=== PATIENT | female | born 1980 | race Caucasian/White ===

== ENCOUNTER 2017-06-30 17:37 | Emergency (ER) | payer OTHER, SELFPAY ==
[2017-06-30 18:01] LABS: #Eosinphils 0.4 thou/uL (0.0-0.7); #Lymphocytes 2.1 thou/uL (1.20-3.40); #Monocytes 0.8 thou/uL (0.11-0.59); #Neutrophils 5.8 thou/uL (1.40-6.50); %Basophils 0.4 % (0.0-1.0); %Eosinophils 4.8 % (0.0-10.0); %Lymphocytes 22.6 % (21.0-51.0); %Monocytes 8.5 % (0.0-10.0); Hematocrit 38.1 % (36.0-47.0); Red Blood Cell (RBC) Count 4.06 mill/uL (4.20-5.40); White Blood Cell (WBC) Count 9.2 thou/uL (4.8-10.8)
--- NOTE | 2017-06-30 18:22 | RAD ---
UPRIGHT PORTABLE CHEST ONE VIEW: History: 37-year-old female with chest pain and weakness which began last night. FINDINGS: Monitor leads overlie the chest. Heart size is normal. The left lung is clear. There are some increa sed markings in the right infrahilar region, evidence for minimal right lower lobe pneumonia. IMPRESSION: Parenchymal changes in the right infrahilar region and right lower lobe, evidence for pneumonia. POS: [facility]
[2017-06-30 18:25] LABS: ALT (SGPT) 8 U/L (8-55); AST (SGOT) 12 U/L (5-34); Alkaline Phosphatase 75 U/L (40-150); Anion Gap 11 mmol/L (10-20); BUN (Urea Nitrogen) 10 mg/dL (7.0-18.7); Bilirubin, Total 0.2 mg/dL (0.2-1.2); CK (CPK) 32 U/L (29-168); Calc. Creatinine Clearance 0 mL/min (70-130); Calcium 8.1 mg/dL (7.8-10.44); Carbon Dioxide 30 mmol/L (22-29); Chloride 104 mmol/L (98-107); Estimated GFR-MDRD Greater than 90; Protein, Total 6.2 g/dL (6.0-8.3); Troponin I Less than 0.010 ng/mL (< 0.028)
[2017-06-30] MEDS ORDERED: diphenhydrAMINE 50 MG/ML VIAL ONE (18:53)
[2017-06-30] MEDS ORDERED: Metoclopramide HCl 10 MG/2 ML VIAL ONE (18:53)
[2017-06-30] MEDS ORDERED: Ketorolac Tromethamine 30 MG/ML VIAL ONE (18:53)
== END 2017-06-30 20:10 | disposition home or self-care (01) ==
LOC: ERS 17:37
DX: J18.9 Pneumonia, unspecified organism (principal); I10 Essential (primary) hypertension; G43.909 Migraine, unspecified, not intractable, without status migrainosus; J45.909 Unspecified asthma, uncomplicated; F41.9 Anxiety disorder, unspecified; F17.210 Nicotine dependence, cigarettes, uncomplicated; Z79.899 Other long term (current) drug therapy
CPT/HCPCS: 36415; 71010; 80053; 82550; 82553; 84484; 85025; 93005; 96365; 96375; J1200; J1885; J2765

== ENCOUNTER 2017-08-28 17:53 | Emergency (ER) | payer SELFPAY ==
[2017-08-28 18:32] LABS: #Eosinphils 0.6 thou/uL (0.0-0.7); #Lymphocytes 2.7 thou/uL (1.20-3.40); #Monocytes 0.7 thou/uL (0.11-0.59); #Neutrophils 5.6 thou/uL (1.40-6.50); %Basophils 0.5 % (0.0-1.0); %Eosinophils 6.3 % (0.0-10.0); %Lymphocytes 27.8 % (21.0-51.0); %Monocytes 7.5 % (0.0-10.0); Hematocrit 44.9 % (36.0-47.0); Mean Platelet Volume 6.7 fL (7.4-10.4); Red Blood Cell (RBC) Count 4.83 mill/uL (4.20-5.40); White Blood Cell (WBC) Count 9.7 thou/uL (4.8-10.8)
[2017-08-28 18:40] LABS: Bilirubin Negative (Negative); Blood, Urine Small (Negative); Glucose, Urine (Dipstick) Negative (Negative); Ketone, Urine Negative (Negative); Nitrite Positive (Negative); Protein, Urine (Dipstick) Negative (Neg-Trace); Urobilinogen 0.2 mg/dL (0.2-1.0)
[2017-08-28 18:43] LABS: Bacteria/HPF 2+ HPF (None Seen); Hyaline Casts/LPF 0-3 HYALINE CAST LPF (0-3 Hyaline); Squamous Epithelial 0-3 HPF (0-3); WBC/HPF 0-3 HPF (0-3)
[2017-08-28 18:53] LABS: Amphetamine Detected (NotDetected); Methadone Not Detected (NotDetected); Methamphetamine Detected (NotDetected)
[2017-08-28 18:58] LABS: ALT (SGPT) 12 U/L (8-55); AST (SGOT) 19 U/L (5-34); Alkaline Phosphatase 77 U/L (40-150); Anion Gap 13 mmol/L (10-20); BUN (Urea Nitrogen) 10 mg/dL (7.0-18.7); Bilirubin, Total 0.4 mg/dL (0.2-1.2); Calc. Creatinine Clearance 0 mL/min (70-130); Carbon Dioxide 30 mmol/L (22-29); Chloride 99 mmol/L (98-107); Estimated GFR-MDRD Greater than 90; Globulin 3.5 g/dL (2.4-3.5); Protein, Total 7.9 g/dL (6.0-8.3)
--- NOTE | 2017-08-28 19:21 | RAD ---
CHEST TWO VIEWS: 08/28/17 HISTORY: Chest pain. Heart size and mediastinum are within normal limits. The lungs are clear of infiltrates. No bony find ings. IMPRESSION: No active intrathoracic disease. POS: [facility]
[2017-08-28 19:30] LABS: Troponin I 0.012 ng/mL (< 0.028)
[2017-08-28] MEDS ORDERED: Methocarbamol 1 GM in Sodium Chloride 0.9% 100 ML IVPB ONE (19:30)
[2017-08-28] MEDS ORDERED: Dicyclomine 20 MG TAB ONE (19:31)
--- NOTE | 2017-08-28 21:45 | CT ---
CT OF ABDOMEN AND PELVIS PERFORMED WITH CONTRAST ENHANCEMENT: 08/28/17 HISTORY: Diffuse abdominal pain. COMPARISON: 01/21/17 study. The lung bases are clear. The liver, spleen, pancreas and gallbladder regions appear unremarkable. Stomach is distended. Right and left adrenal glands and right and left kidneys are normal in appearance. There is no significant periaortic or mesenteric adenopathy. CT OF PELVIS PERFORMED WITH CONTRAST ENHANCEMENT: The appendix is normal. No adenopathy or mass. There is a follicle in the region of the right adnexa and some trace free fluid. IMPRESSION: Trace free fluid in the pelvis with a right ovarian follicle. POS: [facility]
--- NOTE | 2017-08-31 13:27 | EKG ---
Test Reason : ABD PAIN Blood Pressure : / mmHG Vent. Rate : 078 BPM Atrial Rate : 078 BPM P-R Int : 134 ms QRS Dur : 102 ms QT Int : 414 ms P-R-T Axes : 075 068 069 degrees QTc Int : 471 ms Normal sinus rhythm Right atrial enlargement Minimal voltage criteria for LVH, may be normal variant Borderline ECG Confirmed by MARCOS MCKEE ([id number]), metropolitan editor SCAR KRISHNA ([id number] on 08/31/2017 1:27:30 PM Referred By: Confirmed By:MARCOS MCKEE
== END 2017-08-28 23:07 | disposition home or self-care (01) ==
LOC: ERS 17:53
DX: N83.201 Unspecified ovarian cyst, right side (principal); N39.0 Urinary tract infection, site not specified; I10 Essential (primary) hypertension; G43.909 Migraine, unspecified, not intractable, without status migrainosus; J45.909 Unspecified asthma, uncomplicated; F41.9 Anxiety disorder, unspecified; F17.210 Nicotine dependence, cigarettes, uncomplicated; Z71.6 Tobacco abuse counseling; Z79.899 Other long term (current) drug therapy
CPT/HCPCS: 36415; 71020; 74177; 80053; 80306; 81003; 81015; 81025; 82553; 84484; 85025; 93005; 96361; 96374; 99406; J2800; J7050

== ENCOUNTER 2017-12-28 20:15 | Observation (INO) | payer SELFPAY ==
[2017-12-28] MEDS ORDERED: Nitroglycerin 2% Ointment 1 INCH/1 GM Packet ONE (20:21)
[2017-12-28] MEDS ORDERED: diphenhydrAMINE 50 MG/ML VIAL ONE (20:26)
[2017-12-28] MEDS ORDERED: Metoclopramide HCl 10 MG/2 ML VIAL ONE (20:26)
--- NOTE | 2017-12-28 20:50 | RAD ---
PORTABLE CHEST 12/28/17 PROVIDED CLINICAL HISTORY: Chest pain. FINDINGS: Comparison 06/30/17. Cardiac and mediastinal silhouette is within normal limits. The lungs appear clear. No pleural fluid or pneumothorax apparent. IMPRESSION: No evidence for an acute cardiopulmonary process. POS: [facility]
[2017-12-28 20:53] LABS: #Basophils 0.1 thou/uL (0.0-0.2); #Eosinphils 0.5 thou/uL (0.0-0.7); #Monocytes 0.7 thou/uL (0.11-0.59); #Neutrophils 2.9 thou/uL (1.40-6.50); %Eosinophils 6.9 % (0.0-10.0); %Lymphocytes 42.2 % (21.0-51.0); %Monocytes 9.1 % (0.0-10.0); %Neutrophils 40.8 % (42.0-75.0); Hemoglobin 13.3 g/dL (12.0-16.0); Mean Corpuscular HGB CONC 34.6 g/dL (32.0-36.0); Mean Corpuscular Hemoglobin 31.2 pg (27.0-31.0); Mean Corpuscular Volume 90.1 fl (81.0-99.0); Mean Platelet Volume 6.8 fL (7.4-10.4); Platelet Count 297 thou/uL (130-400); RBC Distribution Width 11.1 % (11.5-14.5); Red Blood Cell (RBC) Count 4.25 mill/uL (4.20-5.40); White Blood Cell (WBC) Count 7.1 thou/uL (4.8-10.8)
[2017-12-28 21:13] LABS: ALT (SGPT) 21 U/L (8-55); AST (SGOT) 41 U/L (5-34); Albumin 3.8 g/dL (3.5-5.0); Alkaline Phosphatase 84 U/L (40-150); Anion Gap 9 mmol/L (10-20); BUN (Urea Nitrogen) 10 mg/dL (7.0-18.7); Bilirubin, Total 0.3 mg/dL (0.2-1.2); Calc. Creatinine Clearance 0 mL/min (70-130); Calcium 8.6 mg/dL (7.8-10.44); Carbon Dioxide 32 mmol/L (22-29); Chloride 103 mmol/L (98-107); Estimated GFR-MDRD Greater than 90; Globulin 2.6 g/dL (2.4-3.5); Glucose 80 mg/dL (70-105); Protein, Total 6.4 g/dL (6.0-8.3); Sodium 141 mmol/L (136-145)
[2017-12-28 21:18] LABS: Troponin I Less than 0.010 ng/mL (< 0.028)
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
[2017-12-28 22:45] LABS: Amphetamine Detected (NotDetected); Barbiturates Screen Not Detected (NotDetected); Benzodiazepine Screen Not Detected (NotDetected); Cocaine Metabolite Screen Not Detected (NotDetected); Medtox Control Line Valid? VALID (VALID); Medtox Reader # READER 1; Methadone Not Detected (NotDetected); Methamphetamine Not Detected (NotDetected); Opiate Screen Not Detected (NotDetected); Oxycodone Screen Not Detected (NotDetected); Phencyclidine (PCP) Not Detected (NotDetected); THC/Cannabinoid Screen Not Detected (NotDetected); Tricyclic Screen Not Detected (NotDetected)
[2017-12-28] MEDS ORDERED: Nitroglycerin 0.4 MG TAB (25 Tab Bottle) PO PRN (23:28)
[2017-12-28] MEDS ORDERED: Potassium Chloride 20 MEQ TAB PO SCH (23:28)
[2017-12-28] MEDS ORDERED: Lisinopril 20 MG TAB PO SCH (23:28)
[2017-12-28 23:55] LABS: Magnesium 2.1 mg/dL (1.6-2.6); Phosphorus 3.5 mg/dL (2.3-4.7)
[2017-12-29 00:11] LABS: Troponin I Less than 0.010 ng/mL (< 0.028)
[2017-12-29 00:31] LABS: HIV (1/2) Antibody/Antigen Non-Reactive (NonReactive); HIV 1/2 INDEX 0.04 S/CO (<1.00); Hep C IgG Ab Non-Reactive (NonReactive); Hep C Index 0.08 S/CO (0-0.79)
[2017-12-29 02:13] VITALS: BMI 21.4
[2017-12-29 03:33] LABS: Troponin I Less than 0.010 ng/mL (< 0.028)
[2017-12-29 03:41] LABS: Cardiac Risk 3.1 (Less than 4.5)
[2017-12-29] MEDS: Acetaminophen 325 MG TAB PO PRN ×2 (04:16→11:39)
[2017-12-29] MEDS: Lisinopril 20 MG TAB PO SCH ×2 (09:11→19:53)
[2017-12-29] MEDS ORDERED: Regadenoson 0.4 MG/5 ML SYRINGE ONE (10:02)
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
--- NOTE | 2017-12-29 12:57 | NM ---
MYOCARDIAL PERFUSION SCAN: DATE: 12/29/17. PROVIDED CLINICAL HISTORY: Chest pain. RADIOPHARMACEUTICAL: 28 mCi Technetium 99m labeled sestamibi IV stress. 10 mCi Technetium 99m labeled sestamibi IV rest. FINDINGS: There is normal, homogeneous distribution of the radiotracer throughout the left ventricular myocardi um. Gated data demonstrate normal myocardial wall thickening and motion with calculated LEVF of 40%. TID is 1.28. IMPRESSION: No scintigraphic evidence for ischemia. POS: [facility]
[2017-12-29] MEDS ORDERED: Ibuprofen 800 MG TAB PO PRN (14:58)
[2017-12-29 15:36] VITALS: TEMP 98.1
[2017-12-29 19:56] VITALS: BP 164/72
== END 2017-12-29 20:09 | disposition home or self-care (01) ==
LOC: ERS 20:15 → 2SW 22:08
PROVIDERS: ADMIT Family Medicine; ATTEND Family Medicine
DX: R07.89 Other chest pain (principal); R94.31 Abnormal electrocardiogram [ECG] [EKG]; R74.0 Nonspecific elevation of levels of transaminase and lactic acid dehydrogenase [LDH]; R63.4 Abnormal weight loss; E87.6 Hypokalemia; F19.10 Other psychoactive substance abuse, uncomplicated; F17.210 Nicotine dependence, cigarettes, uncomplicated
CPT/HCPCS: 36415; 71045; 78452; 80053; 80061; 80306; 82553; 83735; 84100; 84443; 84484; 85025; 86803; 87389; 93005; 93017; 93306; 94760; 96365; 96366; 96375; 99406; A9500; G0378; J1200; J2765; J2785

== ENCOUNTER 2018-03-24 18:46 | Inpatient (IN) | payer SELFPAY ==
[2018-03-24] MEDS ORDERED: Ketorolac Tromethamine 30 MG/ML VIAL ONE (19:13)
[2018-03-24 19:30] LABS: #Basophils 0.1 thou/uL (0.0-0.2); #Eosinphils 0.3 thou/uL (0.0-0.7); #Lymphocytes 1.9 thou/uL (1.20-3.40); #Monocytes 0.7 thou/uL (0.11-0.59); #Neutrophils 10.1 thou/uL (1.40-6.50); %Basophils 0.5 % (0.0-1.0); %Eosinophils 2.5 % (0.0-10.0); %Lymphocytes 14.8 % (21.0-51.0); %Monocytes 5.3 % (0.0-10.0); Hemoglobin 12.7 g/dL (12.0-16.0); Mean Corpuscular HGB CONC 35.4 g/dL (32.0-36.0); Mean Corpuscular Hemoglobin 31.7 pg (27.0-31.0); Mean Corpuscular Volume 89.6 fL (78.0-98.0); Mean Platelet Volume 6.9 fL (7.4-10.4); Platelet Count 332 thou/uL (130-400); RBC Distribution Width 11.2 % (11.5-14.5); Red Blood Cell (RBC) Count 4.02 mill/uL (4.20-5.40); White Blood Cell (WBC) Count 13.1 thou/uL (4.8-10.8)
[2018-03-24 19:32] LABS: BHCG - Serum Negative (NEGATIVE); Pregs Control Background? CLEAR/WHITE (CLR/WHITE); Pregs Control Bar Appear? YES (CONTROL BAR)
[2018-03-24 19:34] LABS: Bilirubin Negative (Negative); Blood, Urine Negative (Negative); Clarity TURBID (Clear); Glucose, Urine (Dipstick) Negative (Negative); Leukocyte Negative (Negative); Nitrite Negative (Negative); Protein, Urine (Dipstick) Trace mg/dL (Neg-Trace); Specific Gravity, Urine 1.015 (1.002-1.036); Urobilinogen 0.2 mg/dL (0.2-1.0); pH, Urine 8.5 (5.0-9.0)
[2018-03-24 19:47] LABS: ALT (SGPT) 10 U/L (8-55); AST (SGOT) 16 U/L (5-34); Alkaline Phosphatase 83 U/L (40-150); Anion Gap 12 mmol/L (10-20); BUN (Urea Nitrogen) 16 mg/dL (7.0-18.7); Bilirubin, Total 0.4 mg/dL (0.2-1.2); CK (CPK) 64 U/L (29-168); Calc. Creatinine Clearance 0 mL/min (70-130); Calcium 8.7 mg/dL (7.8-10.44); Carbon Dioxide 29 mmol/L (22-29); Chloride 102 mmol/L (98-107); Estimated GFR-MDRD 83; Globulin 2.8 g/dL (2.4-3.5); Glucose 118 mg/dL (70-105); Lipase 17 U/L (8-78); Protein, Total 6.8 g/dL (6.0-8.3); Sodium 140 mmol/L (136-145)
[2018-03-24 19:52] LABS: Potassium 2.9 mmol/L (3.5-5.1)
[2018-03-24] MEDS ORDERED: Potassium Chloride 20 MEQ/100 ML PREMIX BAG ONE (21:26)
--- NOTE | 2018-03-24 23:19 | CT ---
CT ABDOMEN WITHOUT CONTRAST: CT PELVIS WITHOUT CONTRAST: HISTORY: Flank pain and left lower quadrant pain x1 month. COMPARISON: 01/16/2017 FINDINGS: ABDOMEN: The lung bases are clear. Normal heart size. Stable appearance of the aorta. limited esme luation of the solid organs by lack of IV contrast. Grossly, no solid organ abnormality. Unremarkab le gallbladder. No gastrohepatic, retrocrural or periportal lymphadenopathy. Decreased intraabdomin al fat limits evaluation for inflammatory change. No mesenteric mass, lymphadenopathy, free air, or free fluid. Limited evaluation of the alimentary canal by the absence of oral contrast. Gastric muc марина and duodenum are unremarkable. There are multiple fluid-filled loops of small bowel, which are s omewhat prominent. The small bowel loops predominantly involve the mid to distal small bowel. The t erminal ileum and the distal ileum are somewhat more decompressed. Correlate for an early or partial obstructive process. Normal caliber appendix. Fecal material in a nondistended, nondilated colon. Occasional diverticulum. No diverticulitis. Bilaterally, no hydronephrosis, nephrolithiasis, or pe rinephric fat stranding. Bilateral ureters have a normal caliber. No hydroureter, periureteral fat stranding, or ureterolithiasis. PELVIS: Decompressed urinary bladder limits evaluation. Trace amount of fluid in the pelvis is note d. No mass, lymphadenopathy, or free air. The uterus is surgically absent. No lytic or blastic lesions within the osseous structures. Pseudoarthrosis of the right L5 ala over the sacrum is noted. IMPRESSION: 1. Prominent fluid-filled loops of small bowel. Correlate for early/partial obstructive process lewis dunia a developing ileus. 2. Normal caliber appendix. 3. No evidence of nephrolithiasis or obstructive uropathy. POS: [facility]
[2018-03-25] MEDS ORDERED: Potassium Bicarbonate/Cit Ac 25 MEQ TAB ONE (00:14)
[2018-03-25] MEDS ORDERED: hydrALAZINE 20 MG/ML VIAL ONE (02:34)
[2018-03-25 03:07] VITALS: BMI 19.5
[2018-03-25] MEDS ORDERED: Morphine 4 MG/ML VIAL SLOW IVP PRN (03:22)
[2018-03-25] MEDS ORDERED: Ondansetron ODT 4 MG TAB SL PRN (03:22)
[2018-03-25] MEDS ORDERED: Ondansetron HCl/PF 4 MG/2 ML Vial IVP PRN (03:22)
[2018-03-25] MEDS ORDERED: Acetaminophen 325 MG TAB PO PRN (03:22)
[2018-03-25] MEDS ORDERED: Sodium Chloride 0.9% 1,000 ML IV SCH (03:30)
[2018-03-25 07:54] LABS: #Basophils 0.1 thou/uL (0.0-0.2); #Eosinphils 0.3 thou/uL (0.0-0.7); #Lymphocytes 2.4 thou/uL (1.20-3.40); #Monocytes 0.6 thou/uL (0.11-0.59); #Neutrophils 3.5 thou/uL (1.40-6.50); %Basophils 0.9 % (0.0-1.0); %Lymphocytes 34.2 % (21.0-51.0); %Monocytes 9.1 % (0.0-10.0); %Neutrophils 50.9 % (42.0-75.0); Hemoglobin 11.7 g/dL (12.0-16.0); Mean Corpuscular HGB CONC 33.3 g/dL (32.0-36.0); Mean Corpuscular Hemoglobin 31.3 pg (27.0-31.0); Mean Corpuscular Volume 94.1 fL (78.0-98.0); Mean Platelet Volume 7.2 fL (7.4-10.4); Platelet Count 282 thou/uL (130-400); RBC Distribution Width 11.5 % (11.5-14.5); Red Blood Cell (RBC) Count 3.73 mill/uL (4.20-5.40); White Blood Cell (WBC) Count 6.9 thou/uL (4.8-10.8)
[2018-03-25 07:58] LABS: Anion Gap 8 mmol/L (10-20); BUN (Urea Nitrogen) 12 mg/dL (7.0-18.7); Calc. Creatinine Clearance 95 mL/min (70-130); Calcium 7.7 mg/dL (7.8-10.44); Carbon Dioxide 24 mmol/L (22-29); Chloride 109 mmol/L (98-107); Estimated GFR-MDRD Greater than 90; Glucose 104 mg/dL (70-105); Potassium 3.3 mmol/L (3.5-5.1); Sodium 138 mmol/L (136-145)
[2018-03-25] MEDS ORDERED: Acetaminophen 650 MG Suppository PR PRN (08:37)
[2018-03-25 10:36] LABS: Amphetamine Not Detected (NotDetected); Barbiturates Screen Not Detected (NotDetected); Benzodiazepine Screen Not Detected (NotDetected); Cocaine Metabolite Screen Not Detected (NotDetected); Medtox Control Line Valid? VALID (VALID); Medtox Reader # READER 1; Methadone Not Detected (NotDetected); Methamphetamine Detected (NotDetected); Opiate Screen Detected (NotDetected); Oxycodone Screen Not Detected (NotDetected); Phencyclidine (PCP) Not Detected (NotDetected); THC/Cannabinoid Screen Not Detected (NotDetected); Tricyclic Screen Not Detected (NotDetected)
[2018-03-25] MEDS: 1/2 NS w/KCL 20 mEq 1,000 ML IV SCH ×2 (11:39→22:16)
[2018-03-25] MEDS: Nicotine 21 MG PATCH TD SCH (11:39)
[2018-03-25] MEDS: Enoxaparin Sodium 40 MG/0.4 ML SYRINGE SC SCH (11:40)
--- NOTE | 2018-03-25 13:54 | HP ---
PRIMARY CARE PROVIDER: None. CHIEF COMPLAINT: Abdominal pain. HISTORY OF PRESENT ILLNESS: Ms. Arceo is a pleasant 37-year-old lady who was seen at [facility] on 03/25/2018. She reports that she does not see a primary care provider due to lack of insurance. She was admitted at this facility in 12/2017 at which time she had a normal stress test. She reports that over the last month, she has had left flank and left lower quadrant pain, intermitte nt, no known aggravating or relieving factors. It worsened last night. She describes that the inten sity of the pain worsened, as high as 10/10 at its worst, radiated to the right upper quadrant, patie nt was nauseous but did not vomit. She reports that her last bowel movement was yesterday. She gabriel es any fevers or chills. She denies any chest pain. She came to the emergency room because of worse christopher abdominal pain. REVIEW OF SYSTEMS: All other systems reviewed and found to be negative. PAST MEDICAL HISTORY: Significant for hypertension, polysubstance abuse, pyelonephritis with bactere blaine. PAST SURGICAL HISTORY: Hysterectomy and oophorectomy. FAMILY HISTORY: Significant for coronary artery disease in both parents as well as renal disease in several family members. PSYCHIATRIC HISTORY: Anxiety. SOCIAL HISTORY: Patient smokes 1 pack of cigarettes a day. She uses methamphetamines, last use was 2 days ago. She denies alcohol use. ALLERGIES: No known drug allergies. CURRENT MEDICATIONS: None. PHYSICAL EXAMINATION: GENERAL: On examination, Ms. Arceo is awake and alert, not in acute distress. VITAL SIGNS: Blood pressure is 164/73, pulse 77, respiratory rate 16, and she is saturating 95% on r oom air, temperature is 97.4 degrees Fahrenheit. EYES: No scleral icterus. No conjunctival pallor. ENT: Moist mucosal membranes, no oropharyngeal erythema or exudates. NECK: Supple, nontender, trachea is midline. RESPIRATORY: Accessory muscles of breathing are not active. Chest wall movements are symmetric bila terally. LUNGS: Clear to auscultation without wheeze, rhonchi or crepitations. CARDIOVASCULAR: S1 and S2 are heard, regular. Peripheral pulses are palpable. No carotid bruit, no pericardial rub. ABDOMEN: Soft, mild left lower quadrant tenderness, no guarding or rigidity, sluggish bowel sounds. NEUROLOGIC: Cranial nerves II-XII intact. Deep tendon reflexes are 2+. MUSCULOSKELETAL: Power is 5/5 in all 4 extremities. SKIN: No rashes or subcutaneous nodules. LYMPHATIC: No cervical lymphadenopathy. PSYCHIATRIC: Normal mood, normal affect. The patient is oriented to person, place, and time. IMAGING DATA AND LABORATORY DATA: Ms. Arceo's labs and investigations were reviewed. She had CT sca n of the abdomen and pelvis in the emergency room, which showed prominent fluid filled loops of small bowel. The radiologist recommends correlation for early/partial obstructive process versus developi ng ileus. She has normal caliber appendix and no evidence of nephrolithiasis or obstructive uropathy . She has white count of 6,900, hemoglobin 11.7, normal platelet count of 282,000, normal sodium, decre ased potassium of 3.3, which has improved from 2.9 yesterday evening, normal creatinine, negative ser um test, normal liver function test and negative urinalysis. ASSESSMENT AND PLAN: Ms. Arceo is a pleasant 37-year-old lady who was seen at [facility] on 03/25/2018. Her problem list includes: 1. Abdominal pain: Clear etiology not available at this time, likely ileus versus partial/developin g small-bowel obstruction. General Surgery Service has been consulted. The patient will be admitted to the hospital. She will be treated with intravenous fluids and pain medications. 2. Hypokalemia: Potassium has improved, we will continue to replace potassium. 3. Tobacco abuse: Patient counseled regarding tobacco cessation, start nicotine replacement therapy . 4. Methamphetamine abuse: Patient has been counseled regarding cessation of recreational drugs. LEVEL OF RISK: Moderate. LEVEL OF COMPLEXITY: Moderate.
[2018-03-25] MEDS: Acetaminophen 325 MG TAB PO PRN ×2 (15:06→22:12)
--- NOTE | 2018-03-25 21:30 | CON ---
DATE OF CONSULTATION: 03/25/2018 SURGICAL CONSULTATION CHIEF COMPLAINT: Left lower quadrant abdominal pain. HISTORY OF PRESENT ILLNESS: Patient is a 37-year-old white female with a history of an ongoing histo ry of tobacco and methamphetamine abuse. She has a recent history of admissions in 12/2016, 08/2017 and 12/2017 for problems with abdomen and chest pain. She was found at one point to have a significa nt pyelonephritis. She presented to the emergency room last night complaining of ongoing and progressive left lower quad rant abdominal pain. She believes that it started yesterday. During the day, it got worse. She den ies fever. She denies diarrhea or constipation. She denies vomiting, but does note that she had an e nausea yesterday. She was seen in the emergency room and a CT scan was obtained which revealed fin dings potentially consistent with an early ileus, but no other significant abdominal findings. She a lso had a leukocytosis with a white blood cell count of 13,000. She was admitted to the Hospitalist Service and I am consulted for further evaluation regarding her abdominal pain. She notes that her pain is better today and that seems to come and go. PAST MEDICAL HISTORY: 1. Hypertension. 2. Noncompliance. 3. Asthma. 4. Migraine headaches. 5. History of ovarian cyst. 6. History of pyelonephritis. 7. Ongoing tobacco abuse. 8. Ongoing methamphetamine abuse. PAST SURGICAL HISTORY: 1. Left oophorectomy. 2. Partial hysterectomy. MEDICATIONS: She was supposed to be taking lisinopril, but has not been taking that for months secon rebecca to inability to afford it. ALLERGIES: No known drug allergies. PERSONAL AND SOCIAL HISTORY: She is . She has 3 children, but tells me they have all grown a nd moved away. She lives in [place] and has lived there for several years. She smokes about a pack p er day of cigarettes. She formerly was a heavy drinker, but tells me she does not drink alcohol anym ore. She still uses methamphetamine and admits to using this 2-3 days ago. Her drug screen was posi tive on admission for opiates as well as methamphetamine. 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 REVIEW OF SYSTEMS: Otherwise unremarkable. FAMILY HISTORY: Noncontributory. PHYSICAL EXAMINATION: VITAL SIGNS: Her temperature is 97.6, pulse 68, blood pressure 164/84. GENERAL: She is a thin white female who appears older than her stated age. She is alert and oriente d x3. HEAD, EYES, EARS, NOSE, AND THROAT: Unremarkable. NECK: Supple, without mass or tenderness. LUNGS: Clear to auscultation throughout. CARDIAC: Regular rate and rhythm without murmur. ABDOMEN: Soft with normoactive bowel sounds. She has some discomfort primarily in the left lower qu adrant, but this seems to resolve with distraction. RECTAL: Deferred. EXTREMITIES: Unremarkable. LABORATORY DATA: CBC reveals that her white blood cell count has dropped from 13 last night to 6.9 t natalie. Her hemoglobin is 11.7, platelet count is 282. Differential is unremarkable. Chemistry panel reveals minimal electrolyte abnormalities. Her urinalysis last night revealed no evidence of urinar y tract infection. Her urine drug screen as mentioned was positive for opiates and methamphetamine. ASSESSMENT AND PLAN: Patient with abdominal discomfort of uncertain etiology. This could be a muscu loskeletal (like a muscular strain), it could be related to her ongoing drug abuse with amphetamine r elated spasms of the vasculature or intestines. I am uncertain what is causing it, and there does no t appear to be any significant problem that would require any surgical intervention. I recommend res uming a soft diet and discharge her home when she is tolerating this. I will see her in the future a s needed. I would recommend avoiding narcotics and/or prescription pain medication.
[2018-03-26 05:25] LABS: #Basophils 0.1 thou/uL (0.0-0.2); #Eosinphils 0.4 thou/uL (0.0-0.7); #Lymphocytes 2.2 thou/uL (1.20-3.40); #Monocytes 0.4 thou/uL (0.11-0.59); #Neutrophils 3.4 thou/uL (1.40-6.50); %Basophils 1.1 % (0.0-1.0); %Eosinophils 6.2 % (0.0-10.0); %Lymphocytes 33.6 % (21.0-51.0); %Monocytes 6.6 % (0.0-10.0); %Neutrophils 52.5 % (42.0-75.0); Hemoglobin 12.4 g/dL (12.0-16.0); Mean Corpuscular Hemoglobin 30.4 pg (27.0-31.0); Mean Corpuscular Volume 92.1 fL (78.0-98.0); Mean Platelet Volume 6.8 fL (7.4-10.4); Platelet Count 283 thou/uL (130-400); RBC Distribution Width 11.5 % (11.5-14.5); White Blood Cell (WBC) Count 6.4 thou/uL (4.8-10.8)
[2018-03-26 05:40] LABS: Anion Gap 9 mmol/L (10-20); BUN (Urea Nitrogen) 4 mg/dL (7.0-18.7); Calc. Creatinine Clearance 91 mL/min (70-130); Calcium 8.4 mg/dL (7.8-10.44); Carbon Dioxide 29 mmol/L (22-29); Chloride 105 mmol/L (98-107); Estimated GFR-MDRD Greater than 90; Glucose 87 mg/dL (70-105); Potassium 3.8 mmol/L (3.5-5.1); Sodium 139 mmol/L (136-145)
[2018-03-26] MEDS: 1/2 NS w/KCL 20 mEq 1,000 ML IV SCH (05:56)
[2018-03-26] MEDS: Acetaminophen 325 MG TAB PO PRN (09:40)
[2018-03-26] MEDS: Enoxaparin Sodium 40 MG/0.4 ML SYRINGE SC SCH (09:41)
[2018-03-26] MEDS: Nicotine 21 MG PATCH TD SCH (09:41)
[2018-03-26] MEDS ORDERED: Amlodipine 5 MG TAB PO SCH (10:15)
[2018-03-26 12:14] VITALS: TEMP 98.2
[2018-03-26 13:15] VITALS: BP 144/91
--- NOTE | 2018-03-26 21:38 | DIS ---
DATE OF ADMISSION: 03/25/2018 DATE OF DISCHARGE: 03/26/2018 PRIMARY CARE PHYSICIAN: None. DISCHARGE DIAGNOSES: 1. Abdominal pain. 2. Hypokalemia. 3. Tobacco abuse. 4. Recreational drug use. 5. Hypertension. CONDITION OF PATIENT ON THE DAY OF DISCHARGE: Stable. I assessed Ms. Arceo on the day of discharge. She denies any chest pain or shortness of breath. Abdominal pain is better. Vital signs are stabl e. S1 and S2 are heard, regular. Lungs are clear to auscultation bilaterally. Abdomen is soft, non tender. Bowel sounds are heard. CONSULTATIONS DURING THIS HOSPITALIZATION: General surgery, Dr. Torres. HOSPITAL COURSE: Ms. Arceo is a pleasant 37-year-old lady who was admitted to [facility] for abdominal pain. She had CT scan of the abdomen and pelvis done prior to admission. Please refer to my history and physical note dated 03/25/2018 for further details. She was seen by [facility]. It was felt that her abdominal pain could be musculoskeletal or related to h er ongoing drug abuse with amphetamine-related spasms of the vasculature of intestines. She was keri red for discharge by surgical service. She has a history of hypertension and is noncompliant with her lisinopril. She has been started on a mlodipine during this hospitalization. She is advised to check her blood pressure and heart rate 3 t imes a day and show the readings to her primary care provider. She is also strongly advised to estab [facility] care with a primary care provider. She has been advised to stop smoking and recreational drug u se. DISCHARGE MEDICATIONS: Amlodipine 5 mg daily, nicotine 21 mg patch daily. DISCHARGE DESTINATION: Home. TOTAL AMOUNT OF TIME SPENT COORDINATING THIS DISCHARGE: 33 minutes.
[2018-03-27] MEDS ORDERED: Amlodipine 5 MG TAB PO SCH (09:00)
== END 2018-03-26 13:31 | disposition home or self-care (01) | DRG 392 ==
LOC: ERS 18:46 → T4-B 03-25 02:49
PROVIDERS: ADMIT Hospitalist; ATTEND Hospitalist
DX: R10.32 Left lower quadrant pain (principal); I10 Essential (primary) hypertension; F41.9 Anxiety disorder, unspecified; F17.210 Nicotine dependence, cigarettes, uncomplicated; E87.6 Hypokalemia; F15.10 Other stimulant abuse, uncomplicated; D72.829 Elevated white blood cell count, unspecified; Z90.710 Acquired absence of both cervix and uterus
CPT/HCPCS: 36415; 74176; 80048; 80053; 80306; 81003; 82550; 83690; 83735; 84703; 85025; 87077; 87086; 93005; J0360; J1650; J1885; J2270; J3480

== ENCOUNTER 2018-06-08 01:00 | Observation (INO) | payer SELFPAY ==
[2018-06-08 01:40] LABS: #Basophils 0.1 thou/uL (0.0-0.2); #Eosinphils 0.5 thou/uL (0.0-0.7); #Lymphocytes 2.3 thou/uL (1.20-3.40); #Monocytes 0.5 thou/uL (0.11-0.59); %Basophils 1.1 % (0.0-1.0); %Eosinophils 6.9 % (0.0-10.0); %Lymphocytes 31.2 % (21.0-51.0); %Monocytes 7.2 % (0.0-10.0); %Neutrophils 53.5 % (42.0-75.0); Hemoglobin 12.7 g/dL (12.0-16.0); Mean Corpuscular HGB CONC 34.1 g/dL (32.0-36.0); Mean Platelet Volume 7.4 fL (7.4-10.4); Platelet Count 319 thou/uL (130-400); RBC Distribution Width 11.4 % (11.5-14.5); Red Blood Cell (RBC) Count 4.09 mill/uL (4.20-5.40); White Blood Cell (WBC) Count 7.4 thou/uL (4.8-10.8)
[2018-06-08 02:01] LABS: ALT (SGPT) 11 U/L (8-55); AST (SGOT) 17 U/L (5-34); Albumin 3.6 g/dL (3.5-5.0); Alkaline Phosphatase 75 U/L (40-150); Anion Gap 9 mmol/L (10-20); BUN (Urea Nitrogen) 9 mg/dL (7.0-18.7); Bilirubin, Total 0.4 mg/dL (0.2-1.2); CK (CPK) 73 U/L (29-168); Calc. Creatinine Clearance 0 mL/min (70-130); Calcium 8.2 mg/dL (7.8-10.44); Carbon Dioxide 29 mmol/L (22-29); Chloride 103 mmol/L (98-107); Estimated GFR-MDRD Greater than 90; Globulin 2.8 g/dL (2.4-3.5); Glucose 118 mg/dL (70-105); Lipase 21 U/L (8-78); Protein, Total 6.4 g/dL (6.0-8.3); Sodium 138 mmol/L (136-145)
[2018-06-08 02:03] LABS: Potassium 2.8 mmol/L (3.5-5.1)
[2018-06-08 02:04] LABS: CKMB 1.3 ng/mL (0-6.6); Troponin I Less than 0.010 ng/mL (< 0.028)
[2018-06-08] MEDS ORDERED: Acetaminophen 500 MG TAB ONE (02:28)
[2018-06-08] MEDS ORDERED: Metoclopramide HCl 10 MG/2 ML VIAL ONE (02:28)
[2018-06-08] MEDS ORDERED: diphenhydrAMINE 25 MG CAP ONE (02:31)
[2018-06-08 02:35] LABS: Acetaminophen Less than 6.0 mcg/mL (10.0-30.0); Alcohol Less than 10 mg/dL (Less than 10); Salicylate Less than 8.0 mg/dL (15.0-30.0)
[2018-06-08 04:29] LABS: Bilirubin Negative (Negative); Blood, Urine Negative (Negative); Clarity CLOUDY (Clear); Glucose, Urine (Dipstick) Negative (Negative); Leukocyte Negative (Negative); Nitrite Negative (Negative); Protein, Urine (Dipstick) Negative (Neg-Trace); Specific Gravity, Urine 1.014 (1.002-1.036); Urobilinogen 0.2 mg/dL (0.2-1.0); pH, Urine 7.5 (5.0-9.0)
[2018-06-08 04:38] LABS: Amphetamine Detected (NotDetected); Barbiturates Screen Not Detected (NotDetected); Benzodiazepine Screen Not Detected (NotDetected); Cocaine Metabolite Screen Not Detected (NotDetected); Medtox Reader # READER 1; Methadone Not Detected (NotDetected); Methamphetamine Not Detected (NotDetected); Opiate Screen Not Detected (NotDetected); Phencyclidine (PCP) Not Detected (NotDetected); THC/Cannabinoid Screen Not Detected (NotDetected); Tricyclic Screen Not Detected (NotDetected)
[2018-06-08 04:39] LABS: Medtox Control Line Valid? VALID (VALID); Oxycodone Screen Not Detected (NotDetected)
[2018-06-08 04:51] LABS: Troponin I Less than 0.010 ng/mL (< 0.028)
[2018-06-08] MEDS ORDERED: Ondansetron HCl/PF 4 MG/2 ML Vial IVP PRN (06:06)
[2018-06-08] MEDS ORDERED: Sodium Chloride 0.9% 1,000 ML IV SCH (06:06)
[2018-06-08] MEDS ORDERED: Acetaminophen 325 MG TAB PO PRN (06:06)
[2018-06-08] MEDS ORDERED: Ondansetron ODT 4 MG TAB SL PRN (06:06)
--- NOTE | 2018-06-08 08:06 | RAD ---
CHEST 1 VIW: HISTORY: Chest pain. COMPARISON: 12/28/2017. FINDINGS: Cardiac silhouette is magnified by projection. Pulmonary vasculature is unremarkable. Mediastinum i s midline. No lobar consolidation or evidence of pneumothorax. pit clerk leads overlie the ch est. IMPRESSION: No active cardiopulmonary abnormalities are demonstrated. POS: [facility]
[2018-06-08 08:08] LABS: Troponin I Less than 0.010 ng/mL (< 0.028)
[2018-06-08] MEDS ORDERED: Potassium Chloride 20 MEQ TAB PO SCH (09:00)
[2018-06-08] MEDS ORDERED: Aspirin 325 mg Enteric Coated Tablet PO SCH (09:00)
[2018-06-08 11:26] LABS: Anion Gap 9 mmol/L (10-20); BUN (Urea Nitrogen) 10 mg/dL (7.0-18.7); Calc. Creatinine Clearance 97 mL/min (70-130); Calcium 7.8 mg/dL (7.8-10.44); Carbon Dioxide 25 mmol/L (22-29); Chloride 108 mmol/L (98-107); Estimated GFR-MDRD Greater than 90; Glucose 88 mg/dL (70-105); Potassium 3.7 mmol/L (3.5-5.1); Sodium 138 mmol/L (136-145)
--- NOTE | 2018-06-08 12:12 | SS ---
PRIMARY CARE PHYSICIAN: City call admission. REASON FOR ADMISSION: Chest pain, amphetamine abuse and hypokalemia. HISTORY OF PRESENT ILLNESS: A 37-year-old female who has history of polysubstance abuse as well as tobacco abuse who presented to emergency room last night with complaint of chest pain which started after taking amphetamine. Her chest pain description was atypical which was left-sided in location without any relation of respiration, food or activity. She did not have any associated nausea, vomiting, diaphoresis. She was having some headache when chest pain started. She did not have any focal motor or sensory symptoms. She did not have any fever, chills or UTI symptoms. She denies any abdominal pain, constipation or diarrhea. In the emergency room, she was initially hypertensive. She was completely pain free when she arrived to ER. In the emergency room, electrocardiogram was done which showed normal sinus rhythm, nonspecific ST-T changes. Chest x-ray was normal. She had routine blood test done which showed hypokalemia and she was given potassium chloride 40 mEq p.o. and subsequently repeat potassium was normal. In the emergency room, she was symptomatically treated with atenolol, Reglan, and IV fluid. This morning, patient initially was admitted under Dr. Otto, but Dr. Otto was saying that this patient is not following his clinic and subsequently [facility] was notified to take admission. When I saw this patient at that time, the patient was completely asymptomatic. She wanted to go home. Her cardiac enzymes were negative x3. We noted that this patient already had negative stress test done in 12/2017 as well as she also had echocardiography which showed mild low EF. PAST MEDICAL HISTORY: Cardiomyopathy, drug induced hypertension, polysubstance abuse, noncompliance with the treatment. PAST SURGICAL HISTORY: Hysterectomy and oophorectomy. PAST PSYCHIATRIC HISTORY: Polysubstance abuse, noncompliance, anxiety and depression. FAMILY HISTORY: Positive for coronary artery disease to both parents, renal disease among several family members. SOCIAL HISTORY: The patient is smoking about 1 pack per day. She also abuses methamphetamine regularly. She denies any alcohol abuse. ALLERGIES: No known drug allergy. CURRENT HOME MEDICATION: Lisinopril 20 mg p.o. daily. EMERGENCY ROOM COURSE: Patient was given potassium chloride 40 mEq p.o., Benadryl 25 mg, Tylenol 1 gram, Reglan 10 mg, IV fluid. REVIEW OF SYSTEMS: The following complete review of systems was negative, unless otherwise mentioned in the HPI or below: Constitutional: Weight loss or gain, ability to conduct usual activities. Skin: Rash, itching. Eyes: Double vision, pain. ENT/Mouth: Nose bleeding, neck stiffness, pain, tenderness. Cardiovascular: Palpitations, dyspnea on exertion, orthopnea. Respiratory: Shortness of breath, wheezing, cough, hemoptysis, fever or night sweats. Gastrointestinal: Poor appetite, abdominal pain, heartburn, nausea, vomiting, constipation, or diarrhea. Genitourinary: Urgency, frequency, dysuria, nocturia. Musculoskeletal: Pain, swelling. Neurologic/Psychiatric: Anxiety, depression. Allergy/Immunologic: Skin rash, bleeding tendency. Please see my HPI for pertinent positive and negative. All other review of systems reviewed and negative except as mentioned in the HPI. PHYSICAL EXAMINATION: VITAL SIGNS: On arrival, blood pressure 168/104, pulse 79, respiratory rate 18 , temperature 98.6, saturation 100% on room air, weight 49.9 kilograms, currently normal vital signs. GENERAL: Patient is currently alert, awake, no obvious acute distress. HEAD: Normocephalic, atraumatic. EYES: Pupils round, reactive to light. Extraocular muscle intact. ENT: Oropharynx within normal limits. Moist mucous membranes. No oral lesion , no pharyngeal erythema, no exudate. NECK: Supple, no JVD, no thyromegaly, no carotid bruit. No jugular venous distention. LUNGS: Clear to auscultation without any rhonchi or rales. CARDIAC: S1 and S2 regular. No murmur, no gallop, no rub. ABDOMEN: Soft, bowel sounds present, nontender, nondistended. No organomegaly , no mass, no suprapubic tenderness. BACK: Examination unremarkable. No CVA tenderness. EXTREMITIES: Upper extremity passive movements of all joints are normal. Lower extremity, no edema. Good distal pulsation. SKIN: No skin rash. HEMATOLOGIC SYSTEM: No lymphadenopathy. NEUROLOGIC: Nonfocal examination. SIGNIFICANT LABORATORY DATA AND IMAGING DATA: 1. CBC: WBC 7.4, hemoglobin 12.7, platelet 319, ESR 6. 2. BMP: Sodium 138. Initially, potassium 2.8 and repeat 3.7, chloride 103, carbon dioxide 29, BUN 9, creatinine 0.71, glucose 118, calcium 8.2. 3. LFT: AST 17, ALT 11, alkaline phosphatase 75, albumin 3.6, lipase 21. Cardiac enzymes negative x3. CRP less than 0.50. Urinalysis normal. 4. Urine drug screen positive for amphetamines. Serum drug screen negative. 5. EKG normal sinus rhythm without any acute ischemic changes. 6. Chest x-ray based on my review, no acute cardiopulmonary process. ASSESSMENT AND PLAN/IMPRESSION. 1. Atypical chest pain. Most likely related with hypertension and her abuse of methamphetamine. Currently, cardiac enzymes negative x3. EKG is not showing any acute ischemic changes. She already had negative stress test in 2017 as well as echocardiography done in 12/2017. The patient does not need anymore investigation at this point and we will consider discharging her home. Healthy lifestyle measures discussed with the patient. 2. Methamphetamine abuse. Counseling provided to avoid methamphetamine abuse. 3. Tobacco abuse disorder. Smoking cessation counseling given. 4. Hypertension. Continue lisinopril 20 mg p.o. daily. 5. Hypokalemia already replaced by potassium supplementation and corrected. 6. Cardiomyopathy drug induced. The patient is not able to get beta brenda because of relative bradycardia. 7. Deep venous thrombosis prophylaxis not needed because we are expecting discharge today. 8. Gastrointestinal prophylaxis. The patient is advised to use on a p.r.n. basis, Pepcid [id number] medications. DISPOSITION/PLAN: Today. This patient is medically stable for discharge. DATE OF ADMISSION: 06/08/2018 DATE OF DISCHARGE: 06/08/2018 DISCHARGE DISPOSITION: Home. PRIMARY DISCHARGE DIAGNOSIS: Atypical chest pain, ruled out acute coronary syndrome. SECONDARY DISCHARGE DIAGNOSES: Polysubstance abuse including methamphetamine abuse, tobacco abuse disorder, hypertension, drug induced cardiomyopathy, noncompliance with treatment. PRIMARY PROCEDURES/OPERATIONS: None. RADIOLOGICAL INVESTIGATION: Chest x-ray normal. SIGNIFICANT LABORATORY DATA: Please see above. DISCHARGE PLAN: Post hospital, the patient is instructed to follow up with primary care physician in 1 week. HOSPITAL COURSE: Please see my HPI for further detail. The patient was admitted for atypical chest pain. She had hypokalemia which was replaced. She had negative cardiac enzyme and negative admitting supervisor. She was completely asymptomatic by the time of discharge, the patient did not require anymore investigation. The patient was admitted and discharged on the same day. [facility]
[2018-06-08 12:33] VITALS: BP 142/75; TEMP 97.8
== END 2018-06-08 17:03 | disposition home or self-care (01) ==
LOC: ERS 01:00 → 2SW 04:00
PROVIDERS: ADMIT Internal Medicine; ATTEND Internal Medicine
DX: R07.89 Other chest pain (principal); F15.10 Other stimulant abuse, uncomplicated; I10 Essential (primary) hypertension; E87.6 Hypokalemia; I42.7 Cardiomyopathy due to drug and external agent; Z79.899 Other long term (current) drug therapy
CPT/HCPCS: 36415; 71045; 80053; 80306; 80307; 81003; 82550; 82553; 83690; 84484; 85025; 85652; 86140; 93005; 94760; 96361; 96365; G0378; J2765

== ENCOUNTER 2018-07-13 18:50 | Emergency (ER) | payer SELFPAY ==
[2018-07-13] MEDS ORDERED: Ondansetron PF 4 MG/2 ML Vial ONE (19:18)
[2018-07-13 19:25] LABS: #Eosinphils 0.2 thou/uL (0.0-0.7); #Lymphocytes 2.4 thou/uL (1.20-3.40); #Monocytes 0.7 thou/uL (0.11-0.59); #Neutrophils 6.2 thou/uL (1.40-6.50); %Basophils 0.5 % (0.0-1.0); %Eosinophils 2.2 % (0.0-10.0); %Lymphocytes 25.4 % (21.0-51.0); %Monocytes 6.9 % (0.0-10.0); Hemoglobin 14.7 g/dL (12.0-16.0); Mean Corpuscular HGB CONC 35.9 g/dL (32.0-36.0); Mean Corpuscular Hemoglobin 32.6 pg (27.0-31.0); Mean Corpuscular Volume 90.8 fL (78.0-98.0); Mean Platelet Volume 7.1 fL (7.4-10.4); Platelet Count 345 thou/uL (130-400); RBC Distribution Width 11.3 % (11.5-14.5); Red Blood Cell (RBC) Count 4.49 mill/uL (4.20-5.40); White Blood Cell (WBC) Count 9.6 thou/uL (4.8-10.8)
[2018-07-13] MEDS ORDERED: Promethazine HCl 25 MG/ML VIAL ONE (19:31)
[2018-07-13 19:33] LABS: Bilirubin Negative (Negative); Blood, Urine Negative (Negative); Clarity TURBID (Clear); Glucose, Urine (Dipstick) Negative (Negative); Leukocyte Small (Negative); Nitrite Negative (Negative); Protein, Urine (Dipstick) 30 mg/dL (Neg-Trace); Specific Gravity, Urine 1.025 (1.002-1.036)
[2018-07-13 19:36] LABS: Bacteria/HPF 4+ HPF (None Seen); Hyaline Casts/LPF 4-6 HYALINE CAST LPF (0-3 Hyaline); Pathc Cast-AUWi Flag 0.58 (0-2.49)
[2018-07-13 19:41] LABS: RBC/HPF 0-3 HPF (0-3); Renal Epithelial None Seen HPF (0-3); Transitional Epithelial NONE SEEN HPF (0-3)
[2018-07-13 19:46] LABS: ALT (SGPT) 10 U/L (8-55); AST (SGOT) 18 U/L (5-34); Alkaline Phosphatase 76 U/L (40-150); Anion Gap 13 mmol/L (10-20); BUN (Urea Nitrogen) 17 mg/dL (7.0-18.7); Bilirubin, Total 0.5 mg/dL (0.2-1.2); Calc. Creatinine Clearance 0 mL/min (70-130); Calcium 9.3 mg/dL (7.8-10.44); Carbon Dioxide 28 mmol/L (22-29); Chloride 101 mmol/L (98-107); Estimated GFR-MDRD 71; Globulin 3.1 g/dL (2.4-3.5); Glucose 87 mg/dL (70-105); Lipase 26 U/L (8-78); Potassium 3.5 mmol/L (3.5-5.1); Protein, Total 7.1 g/dL (6.0-8.3); Sodium 138 mmol/L (136-145)
[2018-07-13] MEDS ORDERED: cefTRIAXone\\ROCEPHIN 2 GM VIAL ONE (20:09)
== END 2018-07-13 20:20 | disposition home or self-care (01) ==
LOC: ERS 18:50
DX: K52.9 Noninfective gastroenteritis and colitis, unspecified (principal); N39.0 Urinary tract infection, site not specified; R11.2 Nausea with vomiting, unspecified; Z71.6 Tobacco abuse counseling; I10 Essential (primary) hypertension; G43.909 Migraine, unspecified, not intractable, without status migrainosus; J45.909 Unspecified asthma, uncomplicated; F17.210 Nicotine dependence, cigarettes, uncomplicated; Z79.899 Other long term (current) drug therapy
CPT/HCPCS: 36415; 80053; 81003; 81015; 83690; 85025; 87077; 87086; 87186; 96365; 96368; 99406; J0696; J2405; J2550

== ENCOUNTER 2020-12-13 11:45 | Observation (INO) | payer OTHER, SELFPAY ==
[2020-12-13 13:07] LABS: #Basophils 0.1 thou/uL (0.0-0.2); #Eosinphils 0.3 thou/uL (0.0-0.7); #Lymphocytes 1.8 thou/uL (1.20-3.40); #Monocytes 0.6 thou/uL (0.11-0.59); #Neutrophils 4.5 thou/uL (1.40-6.50); %Basophils 0.8 % (0.0-1.0); %Eosinophils 4.5 % (0.0-10.0); %Lymphocytes 24.6 % (21.0-51.0); %Monocytes 7.9 % (0.0-10.0); %Neutrophils 62.2 % (42.0-75.0); Hemoglobin 13.4 g/dL (12.0-16.0); Mean Corpuscular HGB CONC 33.1 g/dL (32.0-36.0); Mean Corpuscular Hemoglobin 29.8 pg (27.0-31.0); Mean Corpuscular Volume 89.9 fL (78.0-98.0); Mean Platelet Volume 7.4 fL (7.4-10.4); Platelet Count 353 thou/uL (130-400); RBC Distribution Width 11.1 % (11.5-14.5); Red Blood Cell (RBC) Count 4.49 mill/uL (4.20-5.40); White Blood Cell (WBC) Count 7.2 thou/uL (4.8-10.8)
[2020-12-13] MEDS ORDERED: Acetaminophen 500 MG TAB ONE (13:29)
[2020-12-13 13:30] LABS: ALT (SGPT) 12 U/L (8-55); AST (SGOT) 22 U/L (5-34); Albumin 4.1 g/dL (3.5-5.0); Alkaline Phosphatase 94 U/L (40-110); Anion Gap 13 mmol/L (10-20); BUN (Urea Nitrogen) 14 mg/dL (7.0-18.7); Bilirubin, Total 0.4 mg/dL (0.2-1.2); Calc. Creatinine Clearance 0 mL/min (70-130); Calcium 8.7 mg/dL (7.8-10.44); Carbon Dioxide 28 mmol/L (22-29); Glucose 86 mg/dL (70-105); Protein, Total 7.1 g/dL (6.0-8.3)
[2020-12-13 13:31] LABS: Chloride 101 mmol/L (98-107); Potassium 3.3 mmol/L (3.5-5.1); Sodium 139 mmol/L (136-145)
[2020-12-13 13:48] LABS: CKMB 4.4 ng/mL (0-6.6)
[2020-12-13] MEDS ORDERED: Nitroglycerin 2% Ointment 1 INCH/1 GM Packet ONE (14:28)
[2020-12-13] MEDS ORDERED: hydrALAZINE 20 MG/ML VIAL SLOW IVP PRN (16:11)
[2020-12-13 16:15] VITALS: BMI 20.5
[2020-12-13] MEDS ORDERED: Potassium Chloride 20 MEQ TAB PO SCH (16:15)
[2020-12-13] MEDS ORDERED: Aspirin 81 mg Enteric Coated Tablet PO SCH (16:15)
[2020-12-13] MEDS ORDERED: Acetaminophen 325 MG TAB PO PRN (16:17)
[2020-12-13 16:51] LABS: Troponin I 0.813 ng/mL (< 0.028)
[2020-12-13] MEDS: HYDROcodone/Acetaminophen 7.5/325 mg Tablet PO PRN (18:50)
[2020-12-13 19:28] LABS: Troponin I 2.222 ng/mL (< 0.028)
[2020-12-13] MEDS ORDERED: cloNIDine 0.1 MG TAB PO PRN (19:35)
[2020-12-13] MEDS ORDERED: Morphine 2 MG/ML VIAL SLOW IVP PRN (19:38)
[2020-12-13] MEDS ORDERED: Lisinopril 20 MG TAB PO SCH (20:00)
[2020-12-14] MEDS: HYDROcodone/Acetaminophen 7.5/325 mg Tablet PO PRN ×2 (04:15→08:55)
[2020-12-14 04:48] LABS: Cardiac Risk 3.1 (Less than 4.5); Cholesterol 158 mg/dl (< 200 Desired); HDL Cholesterol 51 mg/dL (>60 Neg Risk); LDL Cholesterol, Calculated 86 mg/dL; Potassium 3.2 mmol/L (3.5-5.1); Triglycerides 105 mg/dL (Less than 150)
[2020-12-14 05:23] LABS: SARS-CoV-2 PCR NAA for Saliva Not Detected (NotDetected)
[2020-12-14] MEDS ORDERED: Iopamidol 370 76% 100 ML VIAL ONE (08:45)
[2020-12-14] MEDS ORDERED: Lisinopril 20 MG TAB PO SCH (09:00)
[2020-12-14] MEDS ORDERED: Aspirin 81 mg Enteric Coated Tablet PO SCH (09:00)
[2020-12-14] MEDS ORDERED: Communication Order-Pharmacy FS SCH (09:45)
[2020-12-14 09:50] LABS: Amphetamine Detected (NotDetected); Barbiturates Screen Not Detected (NotDetected); Benzodiazepine Screen Not Detected (NotDetected); Cocaine Metabolite Screen Not Detected (NotDetected); Medtox Control Line Valid? VALID (VALID); Medtox Reader # READER 4; Methadone Not Detected (NotDetected); Methamphetamine Detected (NotDetected); Opiate Screen Detected (NotDetected); Oxycodone Screen Not Detected (NotDetected); Phencyclidine (PCP) Not Detected (NotDetected); THC/Cannabinoid Screen Not Detected (NotDetected); Tricyclic Screen Not Detected (NotDetected)
[2020-12-14] MEDS ORDERED: Nitroglycerin 100MG/250ML BOT 250 ML ONE (13:52)
[2020-12-14] MEDS ORDERED: Verapamil 5 MG/2 ML VIAL ONE (13:52)
[2020-12-14] MEDS ORDERED: Heparin 10,000 UNITS/ 10 ML VIAL ONE (13:52)
[2020-12-14] MEDS ORDERED: Acetaminophen/Codeine 30-300mg Tablet PO PRN ×2 (14:23)
[2020-12-14] MEDS ORDERED: Nitroglycerin 0.4 MG TAB (25 Tab Bottle) SL PRN (14:23)
[2020-12-14] MEDS ORDERED: Sodium Chloride 0.9% 200 ML IV PRN (14:23)
[2020-12-14 15:30] VITALS: BP 137/78; TEMP 98.1
== END 2020-12-14 17:14 | disposition home or self-care (01) ==
LOC: ERS 11:45 → 2SW 14:17
PROVIDERS: ADMIT Internal Medicine; ATTEND Family Medicine
PROC: 4A023N7 Measurement of Cardiac Sampling and Pressure, Left Heart, Percutaneous Approach (ICD-10-PCS; principal; 2020-12-14)
PROC: B2111ZZ Fluoroscopy of Multiple Coronary Arteries using Low Osmolar Contrast (ICD-10-PCS; 2020-12-14)
DX: R07.89 Other chest pain (principal); E87.6 Hypokalemia; F15.10 Other stimulant abuse, uncomplicated; F17.210 Nicotine dependence, cigarettes, uncomplicated; I16.0 Hypertensive urgency; I10 Essential (primary) hypertension; J45.909 Unspecified asthma, uncomplicated; G43.909 Migraine, unspecified, not intractable, without status migrainosus; Z91.14 Patient's other noncompliance with medication regimen; Z20.822 Contact with and (suspected) exposure to COVID-19
CPT/HCPCS: 36415; 36416; 71045; 80053; 80061; 80306; 82553; 84132; 84484; 85025; 87635; 93005; 93306; 93458; 96374; 96375; G0378; J0360; J1644; J2270; Q9967; U0003; U0005

== ENCOUNTER 2022-08-02 22:01 | Emergency (ER) | payer OTHER, SELFPAY ==
[2022-08-02] MEDS ORDERED: Nitroglycerin 2% Ointment 1 INCH/1 GM Packet ONE (22:57)
[2022-08-02] MEDS ORDERED: Acetaminophen 500 MG TAB ONE (23:10)
[2022-08-02 23:16] LABS: #Eosinphils 0.5 thou/uL (0.0-0.7); #Lymphocytes 2.9 thou/uL (1.20-3.40); #Monocytes 0.8 thou/uL (0.11-0.59); #Neutrophils 5.7 thou/uL (1.40-6.50); %Basophils 0.4 % (0.0-1.0); %Eosinophils 5.4 % (0.0-10.0); %Lymphocytes 28.7 % (21.0-51.0); %Monocytes 7.9 % (0.0-10.0); %Neutrophils 57.6 % (42.0-75.0); Hemoglobin 12.5 g/dL (12.0-16.0); Mean Corpuscular HGB CONC 32.9 g/dL (32.0-36.0); Mean Corpuscular Hemoglobin 29.3 pg (27.0-31.0); Mean Platelet Volume 7.9 fL (7.4-10.4); Platelet Count 319 10x3/uL (130-400); RBC Distribution Width 12.1 % (11.5-14.5); Red Blood Cell (RBC) Count 4.26 mill/uL (4.20-5.40)
[2022-08-02 23:39] LABS: ALT (SGPT) 48 U/L (8-55); AST (SGOT) 35 U/L (5-34); Albumin 3.8 g/dL (3.5-5.0); Alkaline Phosphatase 120 U/L (40-110); Anion Gap 12 mmol/L (10-20); BUN (Urea Nitrogen) 20 mg/dL (7.0-18.7); Bilirubin, Total 0.2 mg/dL (0.2-1.2); Calc. Creatinine Clearance 0 mL/min (70-130); Calcium 8.9 mg/dL (7.8-10.44); Carbon Dioxide 26 mmol/L (22-29); Chloride 104 mmol/L (98-107); Estimated GFR 101; Globulin 2.9 g/dL (2.4-3.5); Glucose 104 mg/dL (70-105); Potassium 3.6 mmol/L (3.5-5.1); Protein, Total 6.7 g/dL (6.0-8.3); Sodium 138 mmol/L (136-145)
[2022-08-03 00:10] LABS: Bilirubin Negative (Negative); Blood, Urine 1+ (Negative); Clarity Turbid (Clear); Glucose, Urine (Dipstick) Normal (Negative); Ketone, Urine Negative (Negative); Leukocyte Negative Leu/uL (Negative); Nitrite Negative (Negative); Protein, Urine (Dipstick) Negative (Neg-Trace); Specific Gravity, Urine 1.018 (1.002-1.036); Urobilinogen Normal mg/dL (Less than 2)
[2022-08-03 00:29] LABS: Bacteria/HPF 1+ HPF (None Seen); RBC/HPF 0-3 HPF (0-3); Squamous Epithelial 0-3 HPF (0-3); WBC/HPF 0-3 HPF (0-3)
[2022-08-03] MEDS ORDERED: diphenhydrAMINE 50 MG/ML VIAL ONE (01:00)
[2022-08-03] MEDS ORDERED: Metoclopramide HCl 10 MG/2 ML VIAL ONE (01:00)
[2022-08-03 01:24] LABS: Amphetamine Not Detected (NotDetected); Barbiturates Screen Not Detected (NotDetected); Benzodiazepine Screen Not Detected (NotDetected); Cocaine Metabolite Screen Not Detected (NotDetected); Methadone Not Detected (NotDetected); Methamphetamine Not Detected (NotDetected); Opiate Screen Not Detected (NotDetected); Oxycodone Screen Not Detected (NotDetected); Phencyclidine (PCP) Not Detected (NotDetected); THC/Cannabinoid Screen Not Detected (NotDetected); Tricyclic Screen Not Detected (NotDetected)
[2022-08-03 01:50] LABS: Troponin I Less than 0.010 ng/mL (< 0.028)
== END 2022-08-03 02:48 | disposition home or self-care (01) ==
LOC: ERS 22:01
DX: R07.9 Chest pain, unspecified (principal); I10 Essential (primary) hypertension; G43.909 Migraine, unspecified, not intractable, without status migrainosus; J45.909 Unspecified asthma, uncomplicated; F17.210 Nicotine dependence, cigarettes, uncomplicated
CPT/HCPCS: 36415; 71045; 80053; 80306; 81003; 81015; 83880; 84443; 84484; 85025; 93005; 96374; 96375; J1200; J2765

== ENCOUNTER 2022-08-13 20:41 | Emergency (ER) | payer SELFPAY ==
[2022-08-13 21:23] LABS: #Eosinphils 0.5 thou/uL (0.0-0.7); #Lymphocytes 2.7 thou/uL (1.20-3.40); #Monocytes 0.8 thou/uL (0.11-0.59); #Neutrophils 4.3 thou/uL (1.40-6.50); %Basophils 0.4 % (0.0-1.0); %Eosinophils 5.6 % (0.0-10.0); %Lymphocytes 32.2 % (21.0-51.0); %Monocytes 9.2 % (0.0-10.0); %Neutrophils 52.7 % (42.0-75.0); Hemoglobin 12.6 g/dL (12.0-16.0); Mean Corpuscular HGB CONC 32.6 g/dL (32.0-36.0); Mean Corpuscular Hemoglobin 29.3 pg (27.0-31.0); Mean Corpuscular Volume 89.9 fl (78.0-98.0); Mean Platelet Volume 7.7 fL (7.4-10.4); Platelet Count 385 10x3/uL (130-400); RBC Distribution Width 12.1 % (11.5-14.5); Red Blood Cell (RBC) Count 4.32 mill/uL (4.20-5.40); White Blood Cell (WBC) Count 8.2 10x3/uL (4.8-10.8)
[2022-08-13 21:37] LABS: ALT (SGPT) 46 U/L (8-55); AST (SGOT) 41 U/L (5-34); Alkaline Phosphatase 119 U/L (40-110); Anion Gap 10 mmol/L (10-20); BUN (Urea Nitrogen) 10 mg/dL (7.0-18.7); Bilirubin, Total 0.2 mg/dL (0.2-1.2); CK (CPK) 62 U/L (29-168); Calc. Creatinine Clearance 0 mL/min (70-130); Carbon Dioxide 29 mmol/L (22-29); Chloride 105 mmol/L (98-107); Estimated GFR 103; Globulin 3.1 g/dL (2.4-3.5); Glucose 91 mg/dL (70-105); Potassium 3.5 mmol/L (3.5-5.1); Protein, Total 7.1 g/dL (6.0-8.3); Sodium 140 mmol/L (136-145)
== END 2022-08-13 23:52 | disposition left against medical advice (07) ==
LOC: ERS 20:41
DX: Z53.21 Procedure and treatment not carried out due to patient leaving prior to being seen by health care provider (principal)
CPT/HCPCS: 36415; 80053; 82550; 83880; 84484; 85025; 93005

== ENCOUNTER 2024-03-21 16:48 | Emergency (ER) | payer SELFPAY | END 2024-03-21 19:01 | LOC: ERS 16:48 | DX: Z53.21 Procedure and treatment not carried out due to patient leaving prior to being seen by health care provider (principal) ==